=== PATIENT | male | born 1990 | race Caucasian/White ===

== ENCOUNTER 2021-07-05 17:25 | Emergency (ER) | payer OTHER ==
[2021-07-05 19:00] VITALS: BP 120/75; PULSE 59; TEMP 98.8; BMI 24.3
[2021-07-05 19:06] LABS: EOS % 1.5 % (0-4.5); HEMOGLOBIN 15.8 GM/dl (11.7-16.9); LYMPH % 25.6 % (8-40); MCH 30.8 pg (25.7-33.7); MCHC 34.3 g/dl (32.0-35.9); MEAN CELL VOLUME 89.7 fl (80-96); MEAN PLT VOLUME 9.6 fl (7.5-11.1); MONO % 7.9 % (3.8-10.2); PLATELET COUNT 276 10^3/uL (134-434); RBC 5.13 M/mm3 (4.00-5.60); RDW 11.7 % (11.9-15.9)
[2021-07-05 19:16] LABS: ALBUMIN 4.6 g/dl (3.4-5.0); BILIRUBIN,TOTAL 0.8 mg/dl (0.2-1); CALCIUM 9.4 mg/dl (8.5-10); CREATININE 1.1 mg/dl (0.55-1.3); TOT PROT 7.8 g/dl (6.4-8.2)
== END 2021-07-05 19:55 | disposition home or self-care (01) ==
LOC: FER 17:25
DX: R10.31 Right lower quadrant pain (principal)
CPT/HCPCS: 36415; 74176-TC; 80053; 81003; 85025; 99284-25